=== PATIENT | female | born 1970 | race Caucasian/White ===

== ENCOUNTER → 2020-08-25 | Outpatient (CLI) | payer BC ==
[2020-08-25 08:48] VITALS: BP 125/80; PULSE 85; RESP 18; TEMP 97.8
--- NOTE | 2020-08-25 09:07 | P.PAINCN ---
History of Present Illness - Reason for Consult Consult date: 08/25/20 - History of Present Illness This is 50 years old female with a chronic history of severe left shoulder with radiation to the left upper extremity pain, started February 2020, she denies any initiating event she denies any history of trauma or history of heavy lifting, the pain is constant and increases with any activity, at its worst on the left upper extremity, she tried physical therapy without any significant benefit, she denies any fever or night sweats which she denies any motor or sensory deficit she denies any change in the bowel movement or urination. Past Medical History Past Medical History: Asthma, GERD/Reflux Additional Past Medical History / Comment(s): exercised induced asthma, diverticulitis, History of Any Multi-Drug Resistant Organisms: None Reported Past Surgical History: Bladder Surgery, Bowel Resection, Cholecystectomy, Hysterectomy Additional Past Surgical History / Comment(s): sinus surgery, COLONOSCOPY, BLADDER SUSPENSION Past Anesthesia/Blood Transfusion Reactions: Previous Problems w/ Anesthesia, Motion Sickness Additional Past Anesthesia/Blood Transfusion Reaction / Comm: BLOOD PRESSURE HAS DROPPED LOW AFTER SURGERY. CLAUSTROPHOBIC Smoking Status: Never smoker - Past Family History Mother Family Medical History: No Reported History Father Family Medical History: Cancer Sister(s) Family Medical History: Cancer Medications and Allergies Home Medications Medication Instructions Recorded Confirmed Type Cholecalciferol [Vitamin D3] 2,000 unit PO DAILY 07/05/16 08/25/20 History Fexofenadine HCl [Neetu Allergy] 180 mg PO HS 07/05/16 08/25/20 History Montelukast Sodium [Singulair] 10 mg PO HS 07/05/16 08/25/20 History Black Cohosh 540 mg PO DAILY 08/20/20 08/25/20 History Ibuprofen [Motrin Ib] 800 mg PO BID PRN 08/20/20 08/25/20 History Omeprazole 40 mg PO DAILY 08/20/20 08/25/20 History Allergies Allergy/AdvReac Type Severity Reaction Status Date / Time No Known Allergies Allergy Verified 08/20/20 15:40 Physical Exam Vitals: Vital Signs Temp Pulse Resp BP Pulse Ox 08/25/20 08:44 97.8 F 85 18 125/80 96 Physical Examinations : -Constitutiona : Cooperative , not in acute distress . -HEENT : nech : supple , no Lymphadenopathy , normal thyroid size . : eyes : no ptosis , no icterus, no photophobia . - neurologic : Cranial nerve II to XII intact , no focal neurological deffecit . -psychatric : alert , oriented X 3 , appropriate affect , intact judgment and insight . -Lymphatic : no Lymphadenopathy . - musculoskeltal : Cervical Spine motor stregnth in the deltoid and biceps, normal right side , normal Left side motor stregnth biceps and the wrist extensors normal right side ,normal left side . motor stregnth in the triceps muscle . normal Right side , normal Left side deep tendon reflexes normal at the biceps , normal at Brachioradialis , normal at triceps. cervical facet loading test: Negative Bilaterally Spurling test= negative right , positive left. Neck distraction test= negative Right , positive left. Margi sign= negative right, positive left . Normal sensation in the upper extremity bilaterally Tenderness over the lateral epicondyle on the left Lumber spine moter stegnth lower extremities ,thigh and legs 5/5 Right side , 5/5 Left side Results Comments: MRI of the cervical spine= C4 5 C5 6 foraminal stenosis, degenerative disc disease Assessment and Plan Plan: Assessment and plan=1-cervical radiculopathy. 2-cervical foraminal stenosis. 3-left lateral epicondylitis Patient could benefit from cervical epidural steroid injection at C6-7 (left paramedian approach ) Time with Patient: Greater than 30 PQRS Measure Charge Sheet Measure #130: Documentation of Current Meds in Medical Chart: Patient's medications documented in chart Measure #226: Tobacco Use: Screen & Cessation Intervention: Pt not a tobacco user Measure #111: Pneumonia Vaccination: Pneumococcal vaccine NOT administered or previously given Measure #47: Advance Care Plan: Advance care planning discussed & documented, pt chose/unable to give Measure #412: Opioid Treatment Agreement: No documentation of signed opioid treatment agreement Measure #408: Opioid Therapy Follow-up Evaluation: Patient had NO f/u eval minimum every 3 months during opioid therapy Measure #317: Preventitive Care & Scrn High Bld Press & F/U: Normal blood pressure, f/u not required Measure #128: Body Mass Index (BMI) Screening & Follow-up: BMI documented ABOVE normal parameters - f/u documented Measure #131: Pain Assessment & Follow-up: Pain positive & plan documented, Follow-up scheduled Measure #431: Unhealthy Alcohol Use Preventative Care & Scrn: Patient not identified as an unhealthy alcohol user PQRS Narrative: Smoking Status Never smoker Blood Pressure 125/80 Pain Intensity [Left Shoulder] 2 Scale Used Numeric (1 - 10) Hx Alcohol Use (MH) Yes Home Medications: Ambulatory Orders Cholecalciferol [Vitamin D3] 2,000 unit PO DAILY 07/05/16 Fexofenadine HCl [Neetu Allergy] 180 mg PO HS 07/05/16 Montelukast Sodium [Singulair] 10 mg PO HS 07/05/16 Black Cohosh 540 mg PO DAILY 08/20/20 Ibuprofen [Motrin Ib] 800 mg PO BID PRN 08/20/20 Omeprazole 40 mg PO DAILY 08/20/20
== END ==
LOC: PNWHC3 08:35
PROVIDERS: ATTEND Specialist
DX: M48.02 Spinal stenosis, cervical region (principal); M54.12 Radiculopathy, cervical region; M77.12 Lateral epicondylitis, left elbow; Z79.891 Long term (current) use of opiate analgesic; Z79.899 Other long term (current) drug therapy
CPT/HCPCS: 99211

== ENCOUNTER 2020-09-16 12:27 | Day surgery (SDC) | payer BC ==
[2020-09-11 11:15] VITALS: BMI 26.6
[~2020-09-16 12:27] MED LIST: LACTATED RINGERS 1,000 ML IV SCH
[2020-09-16 12:48] VITALS: RESP 16; TEMP 97
[2020-09-16] MEDS ORDERED: LIDOCAINE 1% (10MG/ML) FOR IV START INTRADERMA ONE (13:00)
[2020-09-16] MEDS ORDERED: fentaNYL (PF) 50 MCG/ML 2 ML AMP ONE (13:17)
[2020-09-16] MEDS ORDERED: MIDAZOLAM 2 MG/2 ML VIAL ONE (13:17)
[2020-09-16] MEDS ORDERED: DEXAMETHASONE SOD PHOSPHATE 10 MG/ML 1 ML VIAL ONE (13:17)
[2020-09-16] MEDS ORDERED: IOPAMIDOL M200 10 ML VIAL ONE (13:17)
--- NOTE | 2020-09-16 13:28 | P.PCN ---
Date of Procedure: 09/16/20 Procedure(s) Performed: . PROCEDURE 1. Cervical epidural steroid injection under fluoroscopic guidance, C6-7 (Left paramedian approach )(fluoroscopy images available in the radiology department ) 2. Cervical epidurogram. PREOPERATIVE DIAGNOSIS: 1- Cervical foraminal stenosis 2- Cervical radiculop athy. POSTOPERATIVE DIAGNOSIS: : 1- Cervical foraminal stenosis , 2- Cervical radiculopathy. ANESTHESIA: Local anesthesia with lidocaine 1 % , and moderate sedation, with Versed 2 mg and Fentanyl 50 mcg. EBL 0 PROCEDURE INDICATION: The patient with neck pain and radiculitis unresponsive to conservative treatment consents for procedure. PROCEDURE DESCRIPTION / TECHNIQUE: The patient was seen and identified in the preoperative area. Risks, benefits, complications, including but not limited to infections ,bleeding , allergic reactions to the medications ,and not complete pain releife, and alternatives were discussed with the patient, the patient agreed to proceed with the procedure and signed the consent. Patient was taken to the OR and time out was completed. The patient was placed in the prone position on the procedure table. A pillow was placed under the patients chest to increase the cervical interlaminar space. The cervical area was prepped and draped in the usual sterile fashion. Vital signs were closely monitored during the procedure. Conscious sedation was used during the procedure to decrease patients anxiety. Using anterior-posterior fluoroscopy, the C6-7 interlaminar space was identified and the skin over this site was marked and then infiltrated with 1% lidocaine subcutaneously. Subsequently, a 20-gauge 3-1/2-inch Tuohy epidural needle was inserted and advanced toward the epidural space (left aspect ) by means of the ``hanging-drop technique and guided by AP and lateral fluoroscopy. The correct needle position in the epidural space was verified with the injection of 2 mL of the water soluble contrast dye Isovue-200 and observing an excellent epidurogram with the epidural spread of the dye, after negative aspiration for blood and CSF and in the absence of paresthesias. Again after negative aspiration, mixture containing 20 mg Dexamethasone and 2 ml of preservative- free normal saline injected and a washout of epidurogram was seen. Needle was withdrawn intact, skin was cleansed, and bandages were applied. Complications= none. Disposition= patient was placed in supine position and transferred to the recovery room area in stable condition and there was no evidence of upper or lower extremity motor or sensory deficit after the procedure patient was discharged from recovery room after discharge criteria met and home discharge instructions was given by the staff and patient will follow with the pain clinic in 2-4 weeks
--- NOTE | 2020-09-16 13:57 | FL ---
Fluoroscopy HISTORY: Pain 2 seconds fluoroscopy time supplied to the referring clinician. 1 intraoperative C-arm images docume nt the procedure. See dictated report from anesthesia.
[2020-09-16 13:58] VITALS: BP 127/71; PULSE 70
[2020-09-16] MEDS ORDERED: IV FLUID CONTINUATION 1,000 ML IV ONE (13:59)
== END 2020-09-16 14:09 | disposition home or self-care (01) ==
LOC: ORPAIN 12:27
PROVIDERS: ATTEND Specialist
DX: M48.02 Spinal stenosis, cervical region (principal); M50.10 Cervical disc disorder with radiculopathy, unspecified cervical region; M77.12 Lateral epicondylitis, left elbow; J45.909 Unspecified asthma, uncomplicated; K21.9 Gastro-esophageal reflux disease without esophagitis; K57.90 Diverticulosis of intestine, part unspecified, without perforation or abscess without bleeding; F40.240 Claustrophobia; Z98.890 Other specified postprocedural states; Z90.49 Acquired absence of other specified parts of digestive tract; Z90.710 Acquired absence of both cervix and uterus; Z91.89 Other specified personal risk factors, not elsewhere classified; Z87.898 Personal history of other specified conditions; Z79.899 Other long term (current) drug therapy; Z80.9 Family history of malignant neoplasm, unspecified
CPT/HCPCS: 62321; J2250; J1100; J3010; Q9966

== ENCOUNTER 2020-10-07 11:23 | Day surgery (SDC) | payer BC ==
[2020-10-06 08:19] VITALS: BMI 26.6
[2020-10-07 11:42] VITALS: TEMP 98
[2020-10-07] MEDS ORDERED: LACTATED RINGERS 1,000 ML IV ONE (11:44)
[2020-10-07] MEDS ORDERED: LIDOCAINE 1% (10MG/ML) FOR IV START INTRADERMA ONE (11:46)
[2020-10-07] MEDS ORDERED: DEXAMETHASONE SOD PHOSPHATE 10 MG/ML 1 ML VIAL ONE (12:02)
[2020-10-07] MEDS ORDERED: IOPAMIDOL M200 10 ML VIAL ONE (12:02)
[2020-10-07] MEDS ORDERED: MIDAZOLAM 2 MG/2 ML VIAL ONE (12:02)
[2020-10-07] MEDS ORDERED: LACTATED RINGERS 1,000 ML IV SCH (12:15)
[2020-10-07] MEDS ORDERED: IV FLUID CONTINUATION 1,000 ML IV ONE (12:49)
--- NOTE | 2020-10-07 12:49 | P.PCN ---
Date of Procedure: 10/07/20 Description of Procedure: Pre- and Post-operative Diagnosis: Cervical radiculopathy Procedure: Inter-Laminar Cervical Epidural Steroid Injection under biplanar fluoroscopy Surgeon: Pamela Hopson Anesthesia: Local: 1% Lidocaine, IV sedation : Versed 2 mg. Complications: None. Estimated blood loss: None Specimens removed: None Fluoroscopic image: saved to electronic medical records. Indications for Procedure: The patient has been suffering from neck pain and pain radiating to the upper extremity . Inadequate pain control with pharmacologic regimen. An inter-laminar approach cervical epidural steroid injection was scheduled for the patient. Procedure and Findings: The patient was seen and examined in the holding area. The written informed consent was obtained after explaining the risks, benefits, alternatives of the procedure to the patient. The patient was brought to the procedure room and was placed in the prone position on the operating table. A pillow was placed under the upper chest. Standard anesthesia monitoring was done through out the procedure. Timeout was completed. The skin preparation was done with ChloraPrep 1 and draping was done in usual sterile fashion. Sterile technique was observed throughout the procedure. Under fluoroscopic guidance, the C7-T1 inter-laminar space was identified. 3 ml of 1% Lidocaine was injected with a 25 gauge needle to achieve adequate local anesthesia of the skin and subcutaneous tissue. A 20 gauge, 3.5 inch Tuohy type epidural needle was placed and gradually advanced up to the epidural space using loss of resistance technique and fluoroscopic guidance. Lateral, oblique fluoros copic views confirm the needle position. No paresthesia was noted. A negative aspiration was confirmed and then 1 ml of Isovue-200 was injected. A good dye spread was seen in the epidural space and it was negative for any intrathecal, intraneural or intravascular spread. A total of 5 secondary to ml solution containing 10 mg Dexamethasone, and 4 ml preservative-free Normal Saline was injected slowly with intermittent aspiration. The needle was removed intact, area was cleaned and bandage was applied. Disposition : The patient tolerated the procedure very well. The patient was transferred to the recovery room and remained stable until discharged home. The patient was given detailed discharge instructions for bleeding, infection, increased pain at the injection site, and was advised to seek immediate medical attention should significant side effects develop. The patient will be followed up with our Pain Clinic within 4 weeks for follow-up visit. Note: Attempted at C6-C7 level, unable to advance into the epidural space.
[2020-10-07 12:55] VITALS: RESP 16
--- NOTE | 2020-10-07 13:00 | FL ---
EXAMINATION TYPE: FL guided pain mgmt statistic DATE OF EXAM: 10/07/2020 FLUOROSCOPY Fluoroscopy time of 49 seconds was used during cervical epidural steroid injection. 5 image/s docume nt/s the procedure.
[2020-10-07 13:02] VITALS: BP 121/81; PULSE 70
== END 2020-10-07 13:19 | disposition home or self-care (01) ==
LOC: ORPAIN 11:23
DX: M54.12 Radiculopathy, cervical region (principal); M19.90 Unspecified osteoarthritis, unspecified site; K21.9 Gastro-esophageal reflux disease without esophagitis; Z79.899 Other long term (current) drug therapy; Z79.1 Long term (current) use of non-steroidal anti-inflammatories (NSAID); Z90.49 Acquired absence of other specified parts of digestive tract; Z90.710 Acquired absence of both cervix and uterus
CPT/HCPCS: 62321; J2250; J1100; Q9966; 99152; 99153

== ENCOUNTER → 2020-11-05 | Outpatient (CLI) | payer BC ==
[2020-11-05 13:49] VITALS: BP 129/84; PULSE 77; RESP 16; TEMP 97.8
--- NOTE | 2020-11-05 14:11 | P.PN ---
Subjective Progress Note Date: 11/05/20 This is a follow-up visit for this 50 years old female with a chronic history of severe left shoulder with radiation to the left upper extremity pain, diagnosed with cervical radiculopathy and cervical foraminal stenosis, and cervical spondylosis with cervical facet arthropathy, and left lateral epicondylitis Status post cervical epidural steroid injections 2 she reported that her left upper extremity pain improved significantly she continued to have severe localized pain in the left epicondyle area, the pain increases with any left elbow movement Physical Examinations : -Constitutiona : Cooperative , not in acute distress . -HEENT : nech : supple , no Lymphadenopathy , normal thyroid size . : eyes : no ptosis , no icterus, no photophobia . - neurologic : Cranial nerve II to XII intact , no focal neurological deffecit . -psychatric : alert , oriented X 3 , appropriate affect , intact judgment and insight . -Lymphatic : no Lymphadenopathy . - musculoskeltal : Cervical Spine motor stregnth in the deltoid and biceps, normal right side , normal Left side motor stregnth biceps and the wrist extensors normal right side ,normal left side . motor stregnth in the triceps muscle . normal Right side , normal Left side Normal sensation in the upper extremity bilaterally Tenderness over the lateral epicondyle on the left Lumber spine moter stegnth lower extremities ,thigh and legs 5/5 Right side , 5/5 Left side Results Comments: MRI of the cervical spine= C4 5 C5 6 foraminal stenosis, degenerative disc disease, cervical spondylosis Assessment and Plan Plan: Assessment and plan=1-cervical radiculopathy. 2-cervical foraminal stenosis. 3-left lateral epicondylitis Patient had good benefit from cervical epidural steroid injection at C6-7 Currently most of the pain is in the left lateral epicondyle ( left elbow ) she could benefit from left epicondyle steroid injections PQRS Measure Charge Sheet Measure #130: Documentation of Current Meds in Medical Chart: Patient's medications documented in chart Measure #226: Tobacco Use: Screen & Cessation Intervention: Pt not a tobacco user Measure #111: Pneumonia Vaccination: Pneumococcal vaccine NOT administered or previously given Measure #47: Advance Care Plan: Advance care planning discussed & documented, pt chose/unable to give Measure #412: Opioid Treatment Agreement: No documentation of signed opioid treatment agreement Measure #408: Opioid Therapy Follow-up Evaluation: Patient had NO f/u eval minimum every 3 months during opioid therapy Measure #317: Preventitive Care & Scrn High Bld Press & F/U: Normal blood pressure, f/u not required Measure #128: Body Mass Index (BMI) Screening & Follow-up: BMI documented ABOVE normal parameters - f/u documented Measure #131: Pain Assessment & Follow-up: Pain positive & plan documented, Follow-up scheduled Measure #431: Unhealthy Alcohol Use Preventative Care & Scrn: Patient not identified as an unhealthy alcohol user PQRS Narrative: Objective - Vital Signs Vital signs: Vital Signs Temp 97.8 F 11/05/20 13:46 Pulse 77 11/05/20 13:46 Resp 16 11/05/20 13:46 BP 129/84 11/05/20 13:46 Pulse Ox 99 11/05/20 13:46 Intake & Output 11/04/20 11/05/20 11/05/20 18:59 06:59 18:59 Weight 72.575 kg
== END ==
LOC: PNWHC3 13:13
PROVIDERS: ATTEND Specialist
DX: M54.12 Radiculopathy, cervical region (principal); M48.02 Spinal stenosis, cervical region; M77.12 Lateral epicondylitis, left elbow
CPT/HCPCS: 99211

== ENCOUNTER 2020-11-25 12:12 | Day surgery (SDC) | payer BC ==
[2020-11-20 13:05] VITALS: BMI 26.6
[2020-11-25 12:38] VITALS: TEMP 97.8
[2020-11-25] MEDS ORDERED: LACTATED RINGERS 1,000 ML IV ONE (12:38)
[2020-11-25] MEDS ORDERED: LIDOCAINE 1% (10MG/ML) FOR IV START INTRADERMA ONE (12:48)
[2020-11-25] MEDS ORDERED: ROPIVACAINE 5MG/ML 20ML VIAL ONE (13:11)
[2020-11-25] MEDS ORDERED: methylPREDNISolone ACETATE 40 MG/ML 1 ML VIAL ONE (13:11)
--- NOTE | 2020-11-25 13:25 | P.PCN ---
Date of Procedure: 11/25/20 Procedure(s) Performed: Procedure= left epicondyle (elbo) tendon steroid injection Preoperative diagnosis= 1-left epicondylitis Postoperative diagnosis=Same as preop Diagnosis . Complication = none Condition= stable Anesthesia= none . Indication for the procedure= patient complaining of . Left elbow pain and she is diagnosed with left epicondylitis. Description of the procedure= procedure risk and benefits discussed with the patient, including but not limited, risk of infection and bleeding, and ALLERGIC reaction to the medication and not complete pain relief and patient agreed with the preceding patient taken to the operating room, placed in supine position or standard monitors applied to the patient then after induction of anesthesia back prepped with chlorhexidine 3 times , and under sterile technique using 25-gauge needle, 4 ml of ropivacaine 0.5% mixed with 40 mg of Depo-Medrol injected in the left epicondyle area after negative aspiration, patient tolerated the procedure well without any complications and she will follow up in the pain clinic in a few weeks for repeat injection
[2020-11-25] MEDS ORDERED: IV FLUID CONTINUATION 1,000 ML IV ONE (13:26)
[2020-11-25 13:29] VITALS: BP 128/83; PULSE 82; RESP 16
== END 2020-11-25 13:49 | disposition home or self-care (01) ==
LOC: ORPAIN 12:12
PROVIDERS: ATTEND Specialist
DX: M77.12 Lateral epicondylitis, left elbow (principal); Z90.710 Acquired absence of both cervix and uterus
CPT/HCPCS: 20605; J1030; J2795; 20600

== ENCOUNTER 2020-12-11 11:50 | Day surgery (SDC) | payer BC ==
[2020-12-08 15:33] VITALS: BMI 26.8
[2020-12-11 12:06] VITALS: TEMP 98
[2020-12-11] MEDS ORDERED: ROPIVACAINE 5MG/ML 20ML VIAL ONE (12:45)
[2020-12-11] MEDS ORDERED: TRIAMCINOLONE ACETONIDE 40 MG/ML 1 ML VIAL ONE (12:45)
--- NOTE | 2020-12-11 12:53 | P.PCN ---
Date of Procedure: 12/11/20 Anesthesia: local Surgeon: Randy Lee Pathology: none sent Condition: stable Disposition: PACU Description of Procedure: Diagnosis: Left lateral humeral epicondylitis Procedure: Left lateral humeral epicondyle steroid injection Anesthesia: Local only with lidocaine 1% Description of procedure: The patient was seen in preop holding area consent was obtained and she was brought into the procedure room and placed in the sitting position. Skin was prepped with ChloraPrep. And localized with lidocaine 1% using a 30-gauge 1-1/2 inch needle. I then used 25-gauge needle and 1/2 inch to go through the skin and to contact the bone on the lateral epicondyles of the left humerus. After negative aspiration I injected 20 mg of Kenalog +1.5 MLS of ropivacaine 0.5%. Patient tolerated procedure well. Patient will be seen in the clinic in a few weeks.
[2020-12-11 13:02] VITALS: RESP 16
[2020-12-11 13:11] VITALS: BP 130/79; PULSE 76
== END 2020-12-11 13:18 | disposition home or self-care (01) ==
LOC: ORPAIN 11:50
PROVIDERS: ATTEND Anesthesiology
DX: M77.12 Lateral epicondylitis, left elbow (principal); K21.9 Gastro-esophageal reflux disease without esophagitis
CPT/HCPCS: 20600; J3301; J2795

== ENCOUNTER → 2021-09-18 | Outpatient (CLI) | payer BC ==
[2021-09-18 14:55] LABS: HCT 39.5 % (37.2-46.3); HGB 12.6 g/dL (12.0-15.0); MCH 30.5 pg (27.0-32.0); MCHC 31.9 g/dL (32.0-37.0); MCV 95.6 fL (80.0-97.0); Mean Platelet Volume 10.3 fL (9.5-12.2); NRBC Per 100 WBC 0 /100 WBCS (0.0-0.0); Platelet Count 225 X 10*3/uL (140-440); RBC 4.13 X 10*6/uL (4.10-5.20); RDW 13.2 % (11.5-14.5); WBC 5.65 X 10*3/uL (4.50-10.00)
[2021-09-18 16:04] LABS: Progesterone 0.5 ng/mL
[2021-09-18 16:15] LABS: African American GFR (CKD) 116.7 (60.0-200.0); Albumin 4.6 g/dL (3.8-4.9); Albumin/Globulin Ratio 1.9 (1.60-3.17); Anion Gap 12.5 mmol/L (10.00-18.00); BUN/Creat Ratio 25.3 Ratio (12.00-20.00); Blood Urea Nitrogen 16.8 mg/dL (9.0-27.0); Calcium 9.5 mg/dL (8.7-10.3); Carbon Dioxide 24.1 mmol/L (20.0-27.5); Follicle Stimulating Hormone 6.7 mIU/mL; Globulin 2.4 g/dL (1.6-3.3); Non-African American GFR(CKD) 100.7 (60.0-200.0); Potassium 4.3 mmol/L (3.5-5.5); Total Bilirubin 0.2 mg/dL (0.30-1.20); Total Protein 6.9 g/dL (6.2-8.2)
[2021-09-18 17:16] LABS: Testosterone 14.1 ng/mL (7.00-45.62)
== END | disposition home or self-care (01) ==
LOC: LABWHC1 10:50
PROVIDERS: ATTEND Obstetrics & Gynecology
DX: N95.1 Menopausal and female climacteric states (principal); R37 Sexual dysfunction, unspecified; R53.83 Other fatigue
CPT/HCPCS: 36415; 80053; 82306; 82607; 82670; 83001; 84144; 84403; 84443; 84481; 85027; 86376

== ENCOUNTER → 2021-12-11 | Outpatient (CLI) | payer BC ==
[2021-12-11 19:09] LABS: Follicle Stimulating Hormone 7.1 mIU/mL
== END | disposition home or self-care (01) ==
LOC: LABWHC1 10:38
PROVIDERS: ATTEND Obstetrics & Gynecology
DX: N95.2 Postmenopausal atrophic vaginitis (principal); E34.50 Androgen insensitivity syndrome, unspecified
CPT/HCPCS: 36415; 82670; 83001; 84144; 84403

== ENCOUNTER 2022-06-22 12:32 | Day surgery (SDC) | payer BC ==
[2022-06-22 13:22] VITALS: RESP 16; TEMP 98
[2022-06-22 14:22] VITALS: BP 136/84; PULSE 85
--- NOTE | 2022-06-22 15:05 | US ---
PROCEDURE: US-guided fine needle aspiration of right thyroid nodule DATE: 06/22/2022 2:23 PM INDICATION: 52-year-old female with right thyroid nodule RADIOLOGIST: Dr. Dumont PROFESSOR OF JOURNALISM: None. ANESTHESIA: Local 1% lidocaine. TECHNIQUE: I verify that I have discussed the potential benefits, risks, and side effects regarding this treatme nt/procedure, the likelihood of the patient achieving his or her goals, and the potential problems th at might occur during recuperation. I verify that I have explained the alternatives to the patient including the risks, benefits, and side effects related to the alternatives and the risks related to not receiving the operation/procedure/treatment. The patient/surrogate decision maker has had an opp ortunity to ask and have questions answered. I have secured the patient's or the surrogate decision maker's consent prior to the operation/procedure/treatment. Patient was placed supine on the ultrasound table and the right neck prepped and draped in the usual sterile fashion. 1% lidocaine was infused into the skin and subcutaneous soft tissues to achieve loc al anesthesia. Under direct ultrasound guidance a 25-gauge needle was advanced down to the right thy roid nodule and fine needle aspiration was performed. This was repeated five times. Specimens were prepared on a slide and sent to pathology. At the termination of the procedure hemostasis quickly achieved with manual compression. Patient blanca erated the procedure well with no immediate postprocedural complication. Patient was transferred fro m the radiology department to the holding area in stable condition. FINDINGS: Sonographic images of the right thyroid demonstrate the previously described nodule. Intraprocedural images demonstrate satisfactory positioning of biopsy needles for adequate specimen s ampling. IMPRESSION: Technically successful ultrasound guided fine needle aspiration of right thyroid nodule.
== END 2022-06-22 14:17 | disposition home or self-care (01) ==
LOC: RADPROMAIN 12:32
PROVIDERS: ATTEND Internal Medicine Endocrinology, Diabetes & Metabolism
DX: E04.1 Nontoxic single thyroid nodule (principal)
CPT/HCPCS: 10005; 88173; 88305

== ENCOUNTER → 2022-12-23 | Outpatient (CLI) | payer BC ==
[2022-12-23 16:27] LABS: T4, Free (Free Thyroxine) 1.17 ng/dL (0.800-1.800)
== END | disposition home or self-care (01) ==
LOC: LABWHC1 09:59
PROVIDERS: ATTEND Internal Medicine Endocrinology, Diabetes & Metabolism
DX: E04.1 Nontoxic single thyroid nodule (principal)
CPT/HCPCS: 36415; 84439; 84443; 86376

== ENCOUNTER → 2023-02-10 | Outpatient (CLI) | payer BC ==
[2023-02-10 16:28] LABS: T4, Free (Free Thyroxine) 1.1 ng/dL (0.80-1.80)
== END | disposition home or self-care (01) ==
LOC: LABWHC1 10:06
PROVIDERS: ATTEND Internal Medicine Endocrinology, Diabetes & Metabolism
DX: E04.1 Nontoxic single thyroid nodule (principal)
CPT/HCPCS: 36415; 84439; 84443; 84480

== ENCOUNTER → 2023-06-06 | Outpatient (CLI) | payer BC ==
[2023-06-06 18:23] LABS: T4, Free (Free Thyroxine) 1.21 ng/dL (0.80-1.80)
== END | disposition home or self-care (01) ==
LOC: LABWHC1 11:22
PROVIDERS: ATTEND Internal Medicine Endocrinology, Diabetes & Metabolism
DX: E04.1 Nontoxic single thyroid nodule (principal)
CPT/HCPCS: 36415; 84439; 84443; 84480